=== PATIENT | female | born 1950 | race Caucasian/White ===

== ENCOUNTER → 2017-06-26 | Outpatient (CLI) | payer MEDICARE, OTHER | END | disposition home or self-care (01) | LOC: PCVCCLINIC 13:17 | PROVIDERS: ATTEND Internal Medicine Cardiovascular Disease | DX: I10 Essential (primary) hypertension (principal); E78.00 Pure hypercholesterolemia, unspecified; M34.9 Systemic sclerosis, unspecified; I73.00 Raynaud's syndrome without gangrene; E03.9 Hypothyroidism, unspecified; K21.9 Gastro-esophageal reflux disease without esophagitis; Z78.0 Asymptomatic menopausal state; Z82.49 Family history of ischemic heart disease and other diseases of the circulatory system; Z90.49 Acquired absence of other specified parts of digestive tract; Z96.651 Presence of right artificial knee joint; Z90.710 Acquired absence of both cervix and uterus; Z90.722 Acquired absence of ovaries, bilateral; Z79.82 Long term (current) use of aspirin; Z88.2 Allergy status to sulfonamides | CPT/HCPCS: 93005; G0463 ==

== ENCOUNTER → 2017-12-24 | Outpatient (CLI) | payer MEDICARE, OTHER | END | disposition home or self-care (01) | LOC: PCVCIMAG 09:00 | DX: I10 Essential (primary) hypertension (principal); I73.00 Raynaud's syndrome without gangrene; M34.9 Systemic sclerosis, unspecified; E78.5 Hyperlipidemia, unspecified; Z82.49 Family history of ischemic heart disease and other diseases of the circulatory system; Z79.899 Other long term (current) drug therapy; Z79.82 Long term (current) use of aspirin | CPT/HCPCS: 80061; 93005; 93306; G0463 ==

== ENCOUNTER → 2018-07-22 | Outpatient (CLI) | payer MEDICARE, OTHER ==
--- NOTE | 2018-07-22 12:53 | PCVCIMAG ---
APPROVED REPORT Study performed: 07/22/2018 11:24:45 Exam: Stress Echocardiogram Indication: Dyspnea, Patient Location: Echo lab Stress Nurse: Dorene Eastman RN Status: routine Ht: 5 ft 4 in HR: 54 bpm BP: 130/80 mmHg Rhythm: NSR Medical History Medical History: Hyperlipidemia, HTN, Raynauds, Scleroderma, Family history of CAD Procedure The patient underwent an Exercise Stress Test using the Alexander Protocol. Blood pressure, heart rate, and EKG were monitored. An Echocardiogram was performed by wheel alignment technician in four stages in quad fashion. At peak stress, four selected images were obtained and placed side by side with resting images for comparison. Stress Test Details Stress Test: Exercise stress testing was performed using a Alexander protocol. HR Resting HR: 67 bpmMax Heart Rate (APMHR): 151 bpm Max HR Achieved: 146 bpmTarget HR (85% APMHR): 128 bpm % of APMHR: 96 HR response to stress: Normal HR response to stress BP Resting BP: 130/80 mmHg Max BP: 161/80 mmHg ECG Resting ECG: Sinus Rhythm Clinical Reason for Termination: Maximal effort Exercise duration: 6 min 09 sec Highest Stage Achieved: Stage 2: 2.5 mph at 12% grade. Exercise capacity: 7.40 METs Overall Exercise Capacity for Age: Poor Pre-Stress Echo The resting Echocardiogram showed normal left ventricular contractility with an estimated Ejection Fraction of about 55-60%. Normal wall motion in all segments on baseline images. Post-Stress Echo The stress Echocardiogram showed normal left ventricular contractility with an estimated Ejection Fraction of about 60-65%. Normal augmentation of wall motion in all segments on post stress images. Clinical No clinical or ECG evidence for ischemia. Conclusion Clinical Response: Non-ischemic Exercise Capacity: Below Average Stress ECG Response: Non-ischemic Stress Echo Images: Non-ischemic The left ventricle is normal in size and wall thickness in both the rest and stress images. <Conclusion> The left ventricle is normal in size and wall thickness in both the rest and stress images.
--- NOTE | 2018-07-22 13:41 | PCVCIMAG ---
EXAM: BILATERAL CAROTID DUPLEX INDICATION: Carotid Occlusive Disease. FINDINGS: Doppler Measurements (centimeters per second): RIGHT: Peak CCA-66, Peak ECA-82, Diastolic ICA-32, Peak ICA-118, ICA/CCA Ratio-1.8. LEFT: Peak CCA-69, Peak ECA-84, Diastolic ICA-40, Peak ICA-122, ICA/CCA Ratio-1.8. RIGHT CAROTID: The carotid bulb has moderate plaque. The proximal internal carotid artery shows <40% stenosis. The common carotid artery shows no significant stenosis. The external carotid artery shows no significant stenosis. LEFT CAROTID: The carotid bulb has mild plaque. The proximal internal carotid artery shows <40% stenosis. The common carotid artery shows no significant stenosis. The external carotid artery shows no significant stenosis. Antegrade flow in both vertebral arteries. IMPRESSION: <40% stenosis of the right internal carotid artery with moderate plaque. <40% stenosis of the left internal carotid artery with mild plaque. LOC:[place] [id number]
== END | disposition home or self-care (01) ==
LOC: PCVCIMAG 10:36
PROVIDERS: ATTEND Internal Medicine Cardiovascular Disease
DX: I65.23 Occlusion and stenosis of bilateral carotid arteries (principal); E78.00 Pure hypercholesterolemia, unspecified; I10 Essential (primary) hypertension; I73.00 Raynaud's syndrome without gangrene; R27.0 Ataxia, unspecified; Z82.49 Family history of ischemic heart disease and other diseases of the circulatory system; Z79.82 Long term (current) use of aspirin; Z79.899 Other long term (current) drug therapy
CPT/HCPCS: 93005; 93325; 93351; 93880; G0463

== ENCOUNTER → 2019-02-17 | Outpatient (CLI) | payer MEDICARE | END | disposition home or self-care (01) | LOC: PCVCCLINIC 14:50 | PROVIDERS: ATTEND Internal Medicine Cardiovascular Disease | DX: I10 Essential (primary) hypertension (principal); G45.9 Transient cerebral ischemic attack, unspecified; M34.9 Systemic sclerosis, unspecified; E78.00 Pure hypercholesterolemia, unspecified; Z79.82 Long term (current) use of aspirin | CPT/HCPCS: 93005; G0463 ==